=== PATIENT | female | born 1980 | race African-American/Black ===

== ENCOUNTER 2017-01-29 23:03 | Emergency (ER) | payer BC ==
[2017-01-29 22:56] LABS: BASOPHILS 0.2 %; BASOPHILS ABSOLUTE 0.02 10/3/uL (0.0-0.16); EOSINOPHILS 1.2 %; EOSINOPHILS ABSOLUTE 0.14 10/3/uL (0.0-0.53); HEMATOCRIT 39.7 % (36.0-48.0); HEMOGLOBIN 13.4 g/dL (12.0-16.0); IMMATURE GRANULOCYTES 0.2 %; IMMATURE GRANULOCYTES ABSOLUTE 0.03 10/3/uL (0.0-0.11); LYMPHOCYTES 27.4 %; LYMPHOCYTES ABSOLUTE 3.31 10/3/uL (0.67-4.30); MEAN CORPUS HGB CONC 33.8 g/dL (32.0-36.0); MEAN CORPUSCULAR HEMOGLOB 30.9 pg (26.0-34.0); MEAN PLATELET VOLUME 9.4 fL (9.2-13.0); MONOCYTES 6.6 %; NEUTROPHILS 64.4 %; NEUTROPHILS ABSOLUTE 7.78 10/3/uL (2.02-8.40); PLATELET COUNT 230 10/3/uL (150-400); RBC DISTRIBUTION WIDTH 12.7 % (12.0-16.0); RED CELL COUNT 4.34 10/6/uL (4.0-5.6)
[2017-01-29 22:57] LABS: ER CBC TAT 0 Hrs 00 Mins; MANUAL DIFF NO %; MEAN CORPUSCULAR VOLUME 91.5 fL (80-100); WHITE BLOOD CELLS 12.1 10/3/uL (4.5-10.5)
[~2017-01-29 23:03] MED LIST: KAPIDEX60 MG PO; NORCO1 TAB PO; OB COMPLET1
[2017-01-29 23:08] LABS: CHLORIDE, SERUM 106 MMOL/L (96-112); CO2 (CARBON DIOXIDE) 31 MMOL/L (24-34); CREATININE 0.69 MG/DL (0.55-1.02); GFR AFRICAN AMERICAN 129 ML/MIN (>=60); GFR NON AFRICAN AMERICAN 111 ML/MIN (>=60); GLUCOSE, SERUM 100 MG/DL (60-99); POTASSIUM, SERUM 3.7 MMOL/L (3.5-5.3); SODIUM, SERUM 140 MMOL/L (135-148)
[2017-01-29 23:09] LABS: BUN (BLOOD UREA NITROGEN) 9 MG/DL (6-23)
== END 2017-01-29 23:47 | disposition home or self-care (01) ==
LOC: ER 23:03
PROVIDERS: Nurse Practitioner Acute Care
DX: N61.0 Mastitis without abscess (principal); Z90.49 Acquired absence of other specified parts of digestive tract; Z79.899 Other long term (current) drug therapy
CPT/HCPCS: 80048; 85025; 99283; A9270-GY